=== PATIENT | male | born 1960 | race Caucasian/White ===

== ENCOUNTER 2024-09-25 06:36 | Day surgery (SDC) | payer OTHER, SELFPAY ==
[2024-09-25 06:50] VITALS: BP 108/68
[2024-09-25 06:55] VITALS: BMI 55.2
[2024-09-25 07:03] VITALS: BP 108/68
--- NOTE | 2024-09-25 07:43 | HP.FOC2 ---
Focused History & Physical
Chief Complaint
HPI:
PCP: Danna Liao DO
CDY: Mitchell Corley MD
Chief Complaint: Bi-V ICD at [facility]
HPI / Indication for Planned Procedure:
64 y/o, presents with chronic systolic HFrEF 20-30%, NICM, non obstructive CAD, NSVT, LBBB, prior Bi-V ICD implant in 2017. Device now at [facility] and presents for generator change.
Relevant Past Medical History: Coronary Artery Disease (non obstructive on cath (2013)), Diabetes, Hypertension, Sleep Apnea and Other (HLD, Gout, Morbid Obesity, )
Relevant Social History: Negative
Relevant Family History: Positive for ([place]/CAD, CHF, HTN)
Relevant Past Surgical History: Positive for (Lap Sita, Hernia repair)
Review of Systems
Review of Pertinent Systems: All Systems Negative
Medication
See Medication form for detailed medications: Yes
Medication List (including Herbals & OTC):
Home Medications
�Medication �Instructions �Recorded
allopurinol 300 mg tablet 300 mg PO DAILY 02/03/17
carvedilol 6.25 mg tablet 12.5 mg PO BID 02/03/17
furosemide 20 mg tablet 20 mg PO DAILY 02/03/17
losartan 50 mg tablet 50 mg PO DAILY 02/03/17
spironolactone 25 mg tablet 25 mg PO DAILY 02/03/17
atorvastatin 40 mg tablet 40 mg PO DAILY 09/25/24
empagliflozin 10 mg tablet 10 mg PO DAILY 09/25/24
(Jardiance)
Medications Reviewed: Yes
Allergies and Reactions
Patient has Allergies: No
Noted Allergies and Reactions:
Allergy/AdvReac Type Severity Reaction Status Date / Time
No Known Allergies Allergy Unverified 02/03/17 09:41
Pertinent Physical Exam
All Other Systems: Negative
Head/Neck: Normal
Lungs: Normal
Heart: Normal
Abdomen: Normal
Extremities: Normal
Neurological: Normal
Diagnosis / Assessment
Chronic systolic HFrEF 20-30%
NICM
non obstructive CAD
NSVT
LBBB
prior Bi-V ICD implant (2016)
HTN
HLD
DM
ANDERSON
Gout
Morbid Obesity
Plan / Procedure
Bi-V ICD at [facility]
gen change today
continue max anupam GDMT
incision check as scheduled at [facility]
home later today
Anesthesia/Sedation to be done by Anesthesia Provider: Yes
--- NOTE | 2024-09-25 07:49 | W.ICD.CONTRA ---
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
-
History of ME?: No
LV Function
Left ventricular function study result?: Ejection Fraction </= 35%
ACEI/ARB/ARNI
Patient already on ACEI/ARB/ARNI: Yes
Beta-Cesario
Patient already on Beta Cesario: Yes
[2024-09-25 08:56] VITALS: BP 120/75
[2024-09-25 09:02] VITALS: BP 120/75
--- NOTE | 2024-09-25 09:10 | ITS.CL.ICD ---
[employer] - ICD
Implantable Cardioverter Defibrillator
Procedure Report:
BiV / ICD GENERATOR REMOVAL / IMPLANT REPORT
Date of Procedure: September 25, 2024
Primary Care Physician: Dr. Danna Liao
Primary Dry Cleaning Supervisor: Dr. Johnson Palencia
PROCEDURES:
1. Removal of BiV / ICD Generator
2. BiV / ICD Generator Implant
INDICATION FOR PROCEDURE:
1. ICD at [facility]
2. Current CHF Class 1 and patient is on guideline directed medical therapy at maximal tolerated dose for greater 3 months
3. Diagnosis of CHF initially made over 9 months ago
4. Life expectancy is greater than one year
5. Primary prevention at initial implant
6. Primary prevention at this generator change
7. Explanted device has delivered appropriate therapy: No
HISTORY: The patient is a 64-year-old man with past medical history significant for nonischemic cardiomyopathy and morbid obesity who presents for generator change due to battery at [facility]. He is not pacemaker dependent. He has no prior high-voltage
therapies. All lead data is stable.
ANTIBIOTIC: Ancef 3 g IV
SEDATION: Conscious sedation by anesthesia staff
DESCRIPTION OF PROCEDURE: 'Time-out' was called and confirmed. The patient was prepped and draped in sterile fashion. Lidocaine with epinephrine was used for local anesthesia. An incision was made along the previous incision and the device and
leads were carefully dissected from the pocket. Hemostasis was obtained with electrocautery. The leads were from the device header and tested using an external analyzer. The pocket was liberally irrigated with antibiotic solution. Once
testing (see below) showed adequate and stable function, the leads were connected to the generator header and the leads and generator were placed within the pocket. The pocket was closed in the typical fashion.
EXPLANTED ICD: Fajardo model 3369�40Q Quadra serial #[id number] implanted: 02/03/2017
IMPLANTS:
BiV / ICD: Fajardo model [id number], SN: [id number], Left Pectoral
EXISTING LEADS:
RA lead Fajardo 2088 TC/52, SN: [id number] implanted: 02/03/2017
RV lead F[employer]ardo [id number]/65, SN: [id number] implanted: 02/06/2017
LV lead Fajardo 1458Q/92, SN: [id number] implanted: 02/03/2017
DEVICE TESTING
Sensing: RA 2.6 mV, RV 9.7 mV
Capture: RA 1.0 V@ 0.5 ms, RV 0.75 V@ 0.5 ms, LV 1.0 V@ 0.5ms Note: LV pace setting 1-Coil (previously 2-4)
Ohms: RA 450, RV 490, LV 400, HV 87
FINAL PROGRAMMING:
Cruz Pacing: DDD 70-130ppm
Tachy parameters:
VF: 206 bpm, ATP while charging, Shock
VT1: 160 bpm, Monitor
VT2: 181bpm ATP x2, shock
COMPLICATIONS: None
CONCLUSIONS:
1. Explant of BiV ICD at [facility]
2. Successful implant of BiV ICD generator.
3. In-office wound check in 1 week and device check in 10 days.
[2024-09-25 09:12] VITALS: BP 107/76
== END 2024-09-25 09:51 | disposition home or self-care (01) ==
LOC: CATH 06:36
PROVIDERS: ATTENDING PHYSICIAN Internal Medicine Interventional Cardiology; OTHER PHYSICIAN Internal Medicine Cardiovascular Disease
DX: Z45.02 Encounter for adjustment and management of automatic implantable cardiac defibrillator (principal); I11.0 Hypertensive heart disease with heart failure; I50.20 Unspecified systolic (congestive) heart failure; I42.8 Other cardiomyopathies; I44.7 Left bundle-branch block, unspecified; I25.10 Atherosclerotic heart disease of native coronary artery without angina pectoris; E11.9 Type 2 diabetes mellitus without complications; G47.33 Obstructive sleep apnea (adult) (pediatric); E78.5 Hyperlipidemia, unspecified; M10.9 Gout, unspecified; E66.01 Morbid (severe) obesity due to excess calories; I47.20 Ventricular tachycardia, unspecified; Z79.84 Long term (current) use of oral hypoglycemic drugs
CPT/HCPCS: 33264; C1882